=== PATIENT | female | born 1975 | race Caucasian/White ===

== ENCOUNTER 2016-08-21 11:00 | Inpatient (IN) ==
[2016-08-27] MEDS ORDERED: SALINE FLUSH 10ml SYRINGE IVF PRN ×2 (05:47→21:33)
[2016-08-27] MEDS: LR 1,000 ML IV SCH ×3 (06:41→09:32)
--- NOTE | 2016-08-27 06:45 | Anesthesia Preoperative Report ---
Anesthesia Epidural/Spinal Rec - Date and Time Date and Time: 08/27/16 Preop Diagnosis: term induction Procedure: , Labor Epidural Plan: Epidural, Spinal - Vital Signs /Para: P:4 - Medictaions & Allergies Inpatient Medications: Current Medications Lactated Ringer's (Lactated Ringers) 1,000 mls @ 0 mls/hr IV .Q0M FABBY PRN Reason: As Directed Sodium Chloride (Iv Flush) 10 - 80 ml IVF PRN PRN PRN Reason: Flushing Allergies/Adverse Reactions: Allergies Allergy/AdvReac Type Severity Reaction Status Date / Time No Known Allergies Allergy Unknown Verified 04/26/09 14:16 - Home Medications Home Medications: Home Medications Medication Instructions Recorded Confirmed Type Compounding Vehicle Susp No.17 #0 01/22/15 History [Oral Mix] Vit No.129/Iron/Folic 1 tab PO DAILY 08/21/16 08/21/16 History [ One Daily Tablet] - Medical History Other History: Reports: Now - Surgical History HEENT Surgeries: Reports: Oral Surgery Anesthesia Reactions: None Hx Family Anesthesia Reaction: No History of Motion Sickness: No - Social History Smoking Status: Never smoker Second Hand Exposure: No Alcohol Intake: never Alcohol Intake Frequency: does not drink Hx Chewing Tobacco Use: No - Physical Exam Respiratory Exam: lungs clear, bilateral breath sounds equal Cardiovascular Exam: regular rate and rhythm, no murmur - Airway Assessment Mallampati Score: II TMD: 3 Fingerbreadths Neck Extension: good Overall Assessment: no airway concerns - ASA ASA Score: 2 - Discussion Discussion: Discussed risks/options/alternatives of anesthesia and questions answered. Patient consents. Nursing pain assessment noted. Attestation Statement: Prior to the delivery of any anesthetic medication, I examined the patient, developed the plan, obtained the patient's consent and discussed the risk and benefits of the procedure with the patient/guardian. - Additional Information Comments: Pt is here for induction vs . Dr Curtis will check pt for presentation. If vertex: induction. If breech: C Section.
[2016-08-27] MEDS ORDERED: CALCIUM CARBONATE Chewable 500mg TABLET PO PRN ×2 (07:19→21:33)
[2016-08-27] MEDS ORDERED: OXYTOCIN DRIP 30 UNIT/500 ML ML IV PRN (07:19)
[2016-08-27] MEDS ORDERED: CARBOPROST 250 MCG/ML INJECTION IM PRN (07:19)
[2016-08-27] MEDS ORDERED: LIDOCAINE 1% (10mg/ml) 2mL INJ PF SDV ID PRN (07:19)
[2016-08-27] MEDS ORDERED: LR 1,000 ML IV PRN (07:19)
[2016-08-27] MEDS ORDERED: D5LR 1,000 ML IV PRN (07:19)
[2016-08-27] MEDS ORDERED: METHYLERGONOVINE 0.2 MG/ML INJECTION IM PRN (07:19)
[2016-08-27] MEDS ORDERED: MAG-AL + SIM ORAL LIQUID 30ml PO PRN ×2 (07:19→21:33)
[2016-08-27] MEDS ORDERED: ACETAMINOPHEN 500 MG TABLET PO PRN ×2 (07:19→21:33)
[2016-08-27] MEDS ORDERED: AMPICILLIN 2 GM in NS 100 ML IV SCH (07:30)
[2016-08-27] MEDS ORDERED: AMPICILLIN 1 GM in NS 100 ML IV SCH (07:30)
[2016-08-27] MEDS ORDERED: DiphenhydrAMINE 50 MG/ML INJECTION IVP PRN (10:55)
[2016-08-27] MEDS ORDERED: NALOXONE 0.4 MG/ML INJECTION IVP PRN (10:55)
[2016-08-27] MEDS ORDERED: ONDANSETRON 4 MG/2 ML INJECTION IVP PRN (10:55)
[2016-08-27] MEDS: AMPICILLIN 1 GM in NS 100 ML IV SCH ×3 (11:23→23:04)
[2016-08-27] MEDS ORDERED: ROPIVACAINE 1% 10MG/ML INJ 200 MG, SUFentanil 50 MCG in NS 100 ML EPI PRN (14:36)
[2016-08-27] MEDS ORDERED: LIDOCAINE 1.5% W/EPI 1:200,000 30ml SDV PF ONE (17:14)
[2016-08-27] MEDS ORDERED: DiphenhydrAMINE 25 MG CAPSULE PO PRN (21:33)
[2016-08-27] MEDS ORDERED: HYDROCODONE/APAP 5mg/325mg TABLET PO PRN (21:33)
[2016-08-27] MEDS ORDERED: PHENYLEPHRINE RECTAL SUPPOSITORY PR PRN (21:33)
[2016-08-27] MEDS ORDERED: BENZOCAINE 20% SPRAY 0.5 ML MM ONE (21:33)
[2016-08-27] MEDS ORDERED: OXYTOCIN DRIP 30 UNIT/500 ML ML IV SCH (21:33)
[2016-08-27] MEDS ORDERED: HYDROCORTISONE 2.5% CREAM 30gm RECTALLY PRN (21:33)
[2016-08-28] MEDS: IBUPROFEN 800 MG TABLET PO PRN ×2 (02:11→09:46)
--- NOTE | 2016-08-28 06:55 | Labor and Delivery Note ---
DATE OF DELIVERY: 08/27/2016 DIAGNOSES 1. 41-year-old white female, G7, P4 at 39.2 weeks gestational age. 2. Advanced maternal age. 3. External cephalic version - successful. 4. Pitocin induction of labor for unstable lie. 5. Epidural anesthesia. 6. Artificial rupture of membranes. 7. GBS prophylaxis. 8. Spontaneous vaginal delivery. 9. Nuchal cord x 1. 10. OP presentation. 11. Female infant, 9/9 Apgars, 3742 g (Ilana Rivera). 12. Second-degree perineal laceration - repaired. BRIEF DESCRIPTION After successful external cephalic version, a Pitocin induction was started for unstable lie. Cervix was initially 1 cm. It was very high up. We ran the Pitocin per protocol until we got to 28 and then I was able to break the water at 1 cm dilation at 11:15 a.m. Pitocin reached a maximum of 30 milliunits a minute. IUPM was placed at one point to help us monitor the strength of the contractions and they were strong enough so I was able to titrate down and then eventually off prior to delivery. Patient made it to complete dilation, but was in the OP presentation. She was able to push it out. There were repetitive variable decelerations which were probably explained by the nuchal cord x 1 at delivery. Infant was bulb suctioned after delivery of the head and then again after delivery of the body. Cord was allowed to drain for 2 minutes before I doubly clamped it, and the infant's father cut the cord. Infant was initially placed on the mother's abdomen. Placenta delivered spontaneously and was intact. There was a second-degree perineal laceration that was repaired with 3-0 Vicryl in the usual fashion. One additional surface [id number] suture of 3-0 chromic was placed to complete hemostasis. Maternal blood type is O negative, GBS is positive and rubella is immune. She received ampicillin throughout her labor. At time of dictation, mother and infant are doing well. DEDRICK
--- NOTE | 2016-08-28 08:09 | Progress Note ---
OB PP Progress Note Free Text - Date Date: 08/28/16 - Progress Note Progress Note: vss af hgb stable no c/o this am q&a-krb
--- NOTE | 2016-08-28 08:19 | Procedure Note ---
DATE: 08/27/2016 PREOPERATIVE DIAGNOSIS: Breech presentation, G7, P4, at 39.2 weeks gestational age. POSTOPERATIVE DIAGNOSIS: 1. Vertex presentation. 2. Unstable lie. PROCEDURE: External cephalic version. SURGEON: Wilmer Curtis MD ANESTHESIA: None This is a patient of mine who was brought in today for an external cephalic version. It was performed in Room 4. IV was in place and the patient had a reactive strip. Bedside sono confirmed breech presentation. Dr. Brown ran the sonogram for me and I attempted a backflip three times with the , first by elevating the buttocks and pelvis and then performing the backflip. The third attempt was successful and so we continued monitoring heart tones and began Pitocin induction for unstable lie. Questions were answered to the patient and her 's satisfaction before and after the procedure and we discussed this in detail last week in the office. DEDRICK
[2016-08-28] MEDS: DOCUSATE CALCIUM 240 MG CAPSULE PO SCH (09:46)
--- NOTE | 2016-08-28 16:12 | Progress Note ---
OB PP Progress Note Free Text - Date Date: 08/28/16 - Progress Note Progress Note: doing well no c/o
[2016-08-29] MEDS: IBUPROFEN 800 MG TABLET PO PRN ×2 (01:55→10:01)
--- NOTE | 2016-08-29 09:16 | Progress Note ---
OB PP Progress Note Free Text - Date Date: 08/29/16 - Progress Note Progress Note: vss af no c/o dc instructions given q&a f/u 5-6 wks
--- NOTE | 2016-08-29 09:23 | Discharge Summary ---
Discharge Plan - Med Rec/Dispo Referrals/Follow Up: Wilmer Curtis MD [Physician] - Prescriptions: No Action Vit No.129/Iron/Folic [ One Daily Tablet] 1 tab PO DAILY - Disposition 01 Discharged Home, Self-Care
[2016-08-29] MEDS: DOCUSATE CALCIUM 240 MG CAPSULE PO SCH (10:01)
[2016-08-29] MEDS ORDERED: RHO(D) IMMUNE GLOBULIN 300 MCG/2 ML INJECTION IM ONE (13:30)
--- NOTE | 2016-08-29 13:30 | Labor and Delivery Note ---
- Labor and Delivery Labor and Delivery: Rh FACTOR CONSULT: Mother Blood Type = O NEGATIVE Child Blood Type = O POSITIVE Hgb / Adult Ratio = 0.0000 Will give Rho D Immunglobulin 300mcg IV x 1 dose. Thank you.
[2016-08-30] MEDS ORDERED: PRENATAL VITAMIN TABLET PO SCH (09:00)
== END 2016-08-29 18:15 | disposition home or self-care (01) | DRG 775 ==
LOC: MC 08-27 05:43
PROVIDERS: ADMIT Obstetrics & Gynecology; ATTEND Obstetrics & Gynecology